=== PATIENT | male | born 1960 | race Hispanic/Latino ===

== ENCOUNTER 2017-11-23 08:14 | Inpatient (IN) | payer BC ==
[2017-11-12 08:00] VITALS: BMI 45.4
[2017-11-23] MEDS ORDERED: Bupivacaine 0.5% 50 ML IJ ONE (09:11)
[2017-11-23] MEDS ORDERED: Midazolam 2 MG/2 ML VIAL ONE (10:43)
[2017-11-23] MEDS ORDERED: Propofol 10 mg/ml Inj (20 ML) ONE (10:43)
[2017-11-23] MEDS ORDERED: Succinylcholine 200 mg/10 ml Inj IV ONE (10:44)
[2017-11-23] MEDS ORDERED: Phenylephrine 10 mg/ml Inj ONE (10:57)
[2017-11-23] MEDS ORDERED: Rocuronium 10 mg/ml (5 ml) ONE ×2 (11:01→12:02)
[2017-11-23] MEDS ORDERED: Bupivacaine Liposomal Inj 20 ml ONE (12:11)
[2017-11-23] MEDS ORDERED: Neostigmine Methylsulfate 3mg/3ml Syringe IV ONE (12:35)
--- NOTE | 2017-11-23 13:18 | PCM.SURG1 ---
Surgeon's Initial Post Op Note - Surgeon's Notes Surgeon: Dr. Bennett Ed Transporter: Dr. Montanez PGY3, Darin ALFORD Type of Anesthesia: General Endo Pre-Operative Diagnosis: ventral hernia Operative Findings: same Post-Operative Diagnosis: ventral hernia Operation Performed: ventral hernia repair with mesh placement. lysis of adhesions Specimen/Specimens Removed: none Estimated Blood Loss: EBL {In ML}: 20 Blood Products Given: N/A Drains Used: Rich Post-Op Condition: Good Date of Surgery/Procedure: 11/23/17 Time of Surgery/Procedure: 13:18
[2017-11-23] MEDS ORDERED: Dextrose 50% SYRINGE Inj (50 ml) IV PRN (13:25)
[2017-11-23] MEDS ORDERED: Sodium Chloride 0.9% 1,000 ML IV SCH (13:30)
--- NOTE | 2017-11-23 14:35 | CP.PCM.HP ---
Past Patient History - CARDIAC Hx Pacemaker: No - NEUROLOGICAL Hx Paralysis: No - HEMATOLOGICAL/ONCOLOGICAL Hx Blood Transfusions: No - MUSCULOSKELETAL/RHEUMATOLOGICAL Hx Musculoskeletal Disorders: No - PSYCHIATRIC Hx Emotional Abuse: No Hx Physical Abuse: No Hx Substance Use: No - SURGICAL HISTORY Hx Surgeries: Yes - ANESTHESIA Hx Anesthesia Reactions: No Hx Malignant Hyperthermia: No Meds Allergies/Adverse Reactions: Allergies Allergy/AdvReac Type Severity Reaction Status Date / Time No Known Allergies Allergy Verified 09/29/17 13:01 Results - Vital Signs Recent Vital Signs: Last Vital Signs Temp 98.5 F 11/23/17 14:01 Pulse 93 H 11/23/17 14:01 Resp 23 11/23/17 14:01 BP 127/64 11/23/17 14:01 Pulse Ox 95 11/23/17 14:01 - Labs Labs: Laboratory Results - last 24 hr 11/23/17 08:45 Blood Type O NEGATIVE Antibody Screen Negative BBK History Checked Patient has bt Assessment & Plan - Assessment and Plan (Free Text) Plan: Status-Post Ventral Hernia Repair -s/p ventral hernia repair with surgeon Dr Bennett 11/23 -NAOMI drain in place -Cefazolin 3g ivpb q8h for post-op empiric coverage -LR @ 125cc/hr -Incentive spirometry use -Liquid diet to start 11/24 breakfast, NPO until then -Standard post-op care including drain mgmt, assess for pain, assess for bleeding, monitor for N/V Diastolic CHF -Echo 09/2017 showed moderate LVH, grade I-abnormal relaxation, moderate to severe aortic regurgitation, mild tricuspid regurgitation -Stress Test 09/2017 - normal lexiscan and SPECT study -EKG from 11/12/2017 showed NSR PPX
[2017-11-23] MEDS ORDERED: Insulin Lispro (humaLOG) MEDIUM Coverage SC SCH (15:00)
--- NOTE | 2017-11-23 15:05 | CP.PCM.CON ---
History of Present Illness - History of Present Illness History of Present Illness: PGY-2 medicine consult note for Dr Sharpe Mr Hicks is a 57 year old male with a PMHx of diastolic CHF, DM2, morbid obesity, gout, pickwickian syndrome, lymphedema and ventral hernia who presented to the surgical unit for a scheduled ventral hernia repair. Medicine has been consulted for management of his chronic conditions. The patient is now status post ventral hernia repair with mesh insertion - the surgery was without complications. The patient was seen in the PACU - he was comfortable and doing well. Surgical site was dressed c/d/i with NAOMI drain with serosanguinous output. He denied shortness of breath, chest pain, fever, discomfort. PMHx: diastolic CHF, DM2, morbid obesity, gout, pickwickian syndrome, lymphedema PSHx: Ventral hernia repair Allergies: NKA Home Medications: folic acid 5mg, zetia 10mg, diltiazem 240mg po qd, lipitor 40mg, allopurinol 300mg, aldactone 25mg po bid, metformin 500mg po qd, lasix 40mg po qd, asa 81mg po qd, ergocalciferol 50,000IU po q2xw Review of Systems - Constitutional Constitutional: absent: Chills, Fever - EENT Eyes: Blurred Vision. absent: Change in Vision - Cardiovascular Cardiovascular: absent: Chest Pain - Respiratory Respiratory: absent: Cough, Dyspnea, Hemoptysis - Gastrointestinal Gastrointestinal: Abdominal Pain. absent: Diarrhea - Genitourinary Genitourinary: absent: Dysuria - Integumentary Integumentary: absent: Bleeding Lesions Past Patient History - CARDIAC Hx Pacemaker: No - NEUROLOGICAL Hx Paralysis: No - HEMATOLOGICAL/ONCOLOGICAL Hx Blood Transfusions: No - MUSCULOSKELETAL/RHEUMATOLOGICAL Hx Musculoskeletal Disorders: No - PSYCHIATRIC Hx Emotional Abuse: No Hx Physical Abuse: No Hx Substance Use: No - SURGICAL HISTORY Hx Surgeries: Yes - ANESTHESIA Hx Anesthesia Reactions: No Hx Malignant Hyperthermia: No Meds Allergies/Adverse Reactions: Allergies Allergy/AdvReac Type Severity Reaction Status Date / Time No Known Allergies Allergy Verified 09/29/17 13:01 - Medications Medications: Current Medications Dextrose (Dextrose 50% Inj) 0 ml IV STAT PRN; Protocol PRN Reason: Hypoglycemia Protocol Diltiazem HCl (Cardizem Cd) 240 mg PO DAILY JO ANN Dextrose (Dextrose 5% In Water 1000 Ml) 1,000 mls @ 0 mls/hr IV .Q0M PRN; Protocol PRN Reason: Hypoglycemia Protocol Lactated Ringer's (Lactated Ringer's) 1,000 mls @ 125 mls/hr IV .Q8H JO ANN Cefazolin Sodium 3 gm/ Sodium (Chloride) 100 mls @ 200 mls/hr IVPB Q8H JO ANN Stop: 11/23/17 21:59 Insulin Human Lispro (Humalog Med) 0 units SC Q6H JO ANN; Protocol Physical Exam - Constitutional Appears: Well, No Acute Distress Additional comments: morbid obesity - Head Exam Head Exam: ATRAUMATIC, NORMAL INSPECTION - Eye Exam Eye Exam: EOMI, PERRL - ENT Exam ENT Exam: Mucous Membranes Moist - Neck Exam Neck exam: Positive for: Normal Inspection - Respiratory Exam Respiratory Exam: Decreased Breath Sounds, NORMAL BREATHING PATTERN - Cardiovascular Exam Cardiovascular Exam: Tachycardia, REGULAR RHYTHM, +S1, +S2, Systolic Murmur. absent: JVD - GI/Abdominal Exam GI & Abdominal Exam: Normal Bowel Sounds, Soft, Tenderness Additional comments: abdominal dressing which has a scant amount of drainage - NAOMI draining small amount of serosanguinous fluid. - Extremities Exam Extremities exam: Positive for: normal capillary refill, pedal edema, pedal pulses present - Neurological Exam Neurological exam: Alert, Oriented x3 - Skin Skin Exam: Normal Color, Warm Results - Vital Signs Recent Vital Signs: Last Vital Signs Temp 98.5 F 11/23/17 14:01 Pulse 93 H 11/23/17 14:01 Resp 23 11/23/17 14:01 BP 127/64 11/23/17 14:01 Pulse Ox 95 11/23/17 14:01 - Labs Labs: Laboratory Results - last 24 hr 11/23/17 08:45 Blood Type O NEGATIVE Antibody Screen Negative BBK History Checked Patient has bt Assessment & Plan - Assessment and Plan (Free Text) Plan: Mr Hicks is a 57 year old male with a PMHx of diastolic CHF, DM2, morbid obesity, gout, pickwickian syndrome, HTN, lymphedema and ventral hernia who required medical management after his ventral hernia repair: Post Ventral Hernia Repair -s/p ventral hernia repair with surgeon Dr Bennett 11/23 -NAOMI drain in place -Cefazolin 3g ivpb q8h for post-op empiric coverage -LR @ 125cc/hr -Incentive spirometry use -Liquid diet to start 11/24 breakfast, NPO until then -Standard post-op care including drain mgmt, assess for pain, assess for b leeding, monitor for N/V Diastolic CHF -Echo 09/2017 showed moderate LVH, grade I-abnormal relaxation, moderate to severe aortic regurgitation, mild tricuspid regurgitation -Stress Test 09/2017 - normal lexiscan and SPECT study -EKG from 11/12/2017 showed NSR -F/U Troponin and Probnp -Hold home aspirin for now HTN -BP well controlled -Continue home diltiazem 240mg po qd DM2 -Hold home metforming 500mg po qd for now -Accuchecks q6h with humalog coverage q6h per medium dose protocol -Hypoglycemia protocol Chronic Lymphedema -Hold home lasix for now -Hold home aldactone for now Pickwickian Syndrome -Chronic CO2 retainer -O2 via nasal cannula 3L -F/U ABG -F/U CXR Gout -Hold home allopurinol for now HLD -Hold home lipitor for now -Hold home zetia for now PPX -SCDs contraindicated due to lymphedema LE b/l -Hold off on anticoagulation until labs and coags are back from lab -GI prophylaxis not indicated -NPO for now
[2017-11-23 15:21] LABS: ARTERIAL BLOOD GAS HCO3 28.7 mmol/L (21-28); ARTERIAL BLOOD GAS HEMOGLOBIN 13.1 g/dL (11.7-17.4); ARTERIAL BLOOD GAS O2 CAPACITY 18.2 mL/dl (16-24); ARTERIAL BLOOD GAS O2 CONTENT 17.1 ML/dl (15-23); ARTERIAL BLOOD GAS O2 SAT 93.8 % (95-98); ARTERIAL BLOOD GAS PCO2 57 mm/Hg (35-45); ARTERIAL BLOOD GAS PH 7.31 (7.35-7.45); ARTERIAL BLOOD GAS TCO2 30.4 mmol.L (22-28)
--- NOTE | 2017-11-23 15:26 | RAD ---
Date of service: 11/23/2017 HISTORY: s/p ventral hernia repair; hx of CO2 narcosis COMPARISON: 11/12/2017 FINDINGS: LUNGS: No active pulmonary disease. PLEURA: No significant pleural effusion identified, no pneumothorax apparent. CARDIOVASCULAR: Severe cardiomegaly OSSEOUS STRUCTURES: No significant abnormalities. VISUALIZED UPPER ABDOMEN: Normal. OTHER FINDINGS: None. IMPRESSION: Severe cardiomegaly. The lungs are clear
[2017-11-23 16:08] LABS: BASO # 0.02 K/mm3 (0.0-2.0); BASO % 0.1 % (0.0-3.0); EOS # 0.2 (0.0-0.7); EOS % 1.5 % (1.5-5.0); GRAN # 10.35 (1.4-6.5); GRAN % 76.2 % (50.0-68.0); HEMOGLOBIN 13.3 g/dL (14.0-18.0); LYMPH # 1.9 (1.2-3.4); LYMPH % 13.8 % (22.0-35.0); MEAN CELL VOLUME 92.2 fl (80.0-105.0); MEAN CORPUSCULAR HEMOGLOBIN 30.4 pg (25.0-35.0); MEAN PLATELET VOLUME 9.3 fl (7.0-11.0); MONO # 1.1 (0.1-0.6); MONO % 8.4 % (1.0-6.0); RBC 4.37 10^6/uL (3.5-6.1); RED CELL DISTRIBUTION WIDTH 13.1 % (11.5-14.5); WHITE BLOOD COUNT 13.6 10^3/ul (4.5-11.0)
[2017-11-23] MEDS ORDERED: Levalbuterol 0.63 MG/3 ML Inhal Soln UD IH PRN (16:13)
--- NOTE | 2017-11-23 16:23 | CARD ---
APPROVED REPORT Date of service: 11/23/2017 EKG Measurement Heart [id number] <Conclusion> Sinus rhythm with 1st degree AV block with occasional premature ventricular complexes Abnormal ECG
[2017-11-23 16:28] LABS: ALB/GLOB RATIO 1.3 (1.1-1.8); ALBUMIN 3.8 g/dL (3.0-4.8); ALT/SGPT 28 U/L (7-56); AST/SGOT 20 U/L (17-59); BLOOD UREA NITROGEN 16 mg/dL (7-21); CALCIUM 8.8 mg/dL (8.4-10.5); GFR NON-AFRICAN AMERICAN > 60
[2017-11-23] MEDS ORDERED: Insulin Reg-MEDIUM-Coverage SC SCH (16:30)
[2017-11-23 16:36] LABS: B-TYPE NATRIURETIC PEPTIDE 166 pg/mL (0-450); TROPONIN I < 0.01 ng/mL
[2017-11-23] MEDS: Lactated Ringer's 1,000 ML IV SCH ×2 (18:54→21:19)
[2017-11-23] MEDS: Insulin Lispro (humaLOG) MEDIUM Coverage SC SCH (19:00)
[2017-11-23] MEDS: Levalbuterol 0.63 MG/3 ML Inhal Soln UD IH SCH (20:42)
[2017-11-24] MEDS: Insulin Lispro (humaLOG) MEDIUM Coverage SC SCH ×3 (00:07→18:38)
[2017-11-24] MEDS: Levalbuterol 0.63 MG/3 ML Inhal Soln UD IH SCH ×4 (01:07→19:58)
[2017-11-24 07:05] LABS: BASO # 0.02 K/mm3 (0.0-2.0); BASO % 0.2 % (0.0-3.0); EOS # 0.1 (0.0-0.7); EOS % 0.9 % (1.5-5.0); GRAN # 8.69 (1.4-6.5); GRAN % 72.5 % (50.0-68.0); LYMPH % 16.5 % (22.0-35.0); MEAN CORPUSCULAR HEMOGLOBIN 30.2 pg (25.0-35.0); MEAN CORPUSCULAR HGB CONC 32.4 g/dl (31.0-37.0); MEAN PLATELET VOLUME 8.9 fl (7.0-11.0); MONO # 1.2 (0.1-0.6); MONO % 9.9 % (1.0-6.0); RBC 4.31 10^6/uL (3.5-6.1); RED CELL DISTRIBUTION WIDTH 13.4 % (11.5-14.5)
[2017-11-24 07:18] LABS: ALB/GLOB RATIO 1.2 (1.1-1.8); ALBUMIN 3.7 g/dL (3.0-4.8); ALT/SGPT 25 U/L (7-56); AST/SGOT 18 U/L (17-59); BLOOD UREA NITROGEN 13 mg/dL (7-21); CALCIUM 8.7 mg/dL (8.4-10.5); GFR NON-AFRICAN AMERICAN > 60
[2017-11-24 08:41] LABS: ALB/GLOB RATIO 1.3 (1.1-1.8); ALBUMIN 3.7 g/dL (3.0-4.8); BILIRUBIN,DIRECT 0.2 mg/dL (0.0-0.4)
--- NOTE | 2017-11-24 08:56 | CON ---
DATE: 11/23/2017 REQUESTING PHYSICIAN: Miguel Ángel Bennett MD. REASON FOR CONSULTATION: Postop management of hypoxemia, hypercarbia and hypoxemia. HISTORY OF PRESENT ILLNESS: The patient is a morbidly obese more than 300 pounds 57-year-old male, who is presently being seen and evaluated in the Postanesthesia Care Unit. The patient is seen lying in the stretcher in the Postanesthesia Care Unit. The patient was seen and examined with the program medical director and the surgical attending. At present, the patient is lying in the bed, awake, responsive, does not appear to be any distress. The patient's telemetry monitoring, vital signs were reviewed. Heart rate is 83-87, normal sinus rhythm, blood pressure is 102/76, O2 sat on 1 L is 93-95%. The patient is presently in the Postanesthesia Care Unit, postop after umbilical herniorrhaphy. The patient was found to be hypoxic and is in the recovery room. REVIEW OF SYSTEMS: Thirteen-system review was done, pertinent positive and negative dictated above. CODE STATUS: Full code. LIVING WILL ADVANCE DIRECTIVE: None. The patient's height is almost 6 feet with weight of greater than 310 pounds. BMI is greater than or close to 50. ALLERGIES: PER THE MEDICATION AND THE [employer] HISTORY. MEDICATIONS: The patient's medications are as follows, Lasix 40 mg twice or three times a day, Cardizem CD either 240 or 180 mg daily. The patient is on potassium 10 or 20 mEq once a day. The patient is on metformin 500 mg once a day. The patient is on Lipitor 40 or 20 mg daily. The patient is on Zetia 10 mg daily. The patient is also on Ecotrin 81 mg daily at home. The patient is on vitamin D 50,000 units weekly. SOCIAL HISTORY: Positive for alcohol use. Denies smoking. Denies drug use. Denies communicable transmissible disease. 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 FAMILY HISTORY: Positive for hypertension, diabetes and obesity in the family. PAST MEDICAL AND SURGICAL HISTORY: History of super morbid obesity, history of bilateral lower extremity lymphedema, history of moderate to severe aortic regurgitation, history of hypertensive cardiovascular disease, history of hypertension, history of hyperlipidemia, history of type 2 noninsulin-requiring diabetes mellitus, history of ventral hernia surgery, history of hepatic steatosis, history of severe dietary noncompliance, history of hypovitaminosis D, history of ventral herniorrhaphy 16 years ago. The patient was seen and examined in the Postanesthesia Care Unit. PHYSICAL EXAMINATION: VITAL SIGNS: As mentioned above. HEENT: Head examination normocephalic, atraumatic. HEENT examination shows pink conjunctivae. Anicteric sclerae. No oropharyngeal lesion. NECK: No neck rigidity. Neck is short and supple. CHEST: Kyphosis. Decreased air entry noted bilaterally. No wheezing or crackles or rales noted. CARDIOVASCULAR: S1, S2. Positive diastolic murmur, left second intercostal space, right second intercostal space. ABDOMEN: Morbidly obese, protuberant. Positive abdominal dressing noted. No bleeding or drainage noted on dresses. Decreased bowel sounds noted. GENITALIA: Male. EXTREMITY: Shows positive SCDs. Positive lymphedema and pitting edema of the lower extremity noted. MUSCULOSKELETAL: Shows an elevated body mass index. NEUROLOGICAL: The patient is alert, awake, responsive, is able to move upper and lower extremity without assistance. Gait examination is not tested. PSYCHIATRIC: Not applicable. DIAGNOSTICS: CBC shows a WBCs of 13.3, hemoglobin and hematocrit of greater than 13 and platelets are within normal limits. Chemistry is within normal limits. CMP is within normal limit. LFT is within normal limit. Troponin is 0.01. BNP is 167. Chest x-ray: No active disease. The patient's ABG which was done on 1-2 L oxygen: PH of 7.31, pCO2 of 56, pO2 of 67, bicarb 24, which shows mild respiratory acidosis and hypoxemia. The patient underwent umbilical herniorrhaphy today with Dr. Miguel Ángel Bennett at present. EKG is pending. IMPRESSION AND PLAN: 1. Status post umbilical herniorrhaphy. 2. Super morbid obesity. 3. Possible Pickwickian syndrome with morbid obesity. 4. Hypoxemia. 5. Hypercarbia. 6. Respiratory acidosis. 7. Possible and questionable jafau-ci-depypdl hypoxic hypercarbic respiratory failure secondary to Pickwickian syndrome and morbid obesity. 8. History of moderate aortic regurgitation. 9. Leukocytosis with granulocytosis, postoperative reactive. 10. Mild normocytic anemia. 11. History of hypertension. 12. History of bilateral lower extremity venous stasis and lymphedema. 13. History of umbilical hernia. 14. History of ventral herniorrhaphy. 15. History of type 2 diabetes mellitus, history of hypertension, history of hyperlipidemia, hypovitaminosis D, history of severe dietary noncompliance. Plan at this time, the patient has been admitted to either remote tele or telemetry. The patient will be continued on low-flow oxygen supplementation to titrate O2 sat around mid 90s. The patient at this time has been admitted by Surgical Service with medical consultation requested. The patient will be started on fingerstick blood sugar sliding scale coverage. The patient will be started on non-pharmacological DVT prophylaxis. The patient will be started on GI prophylaxis with IV Protonix. The patient will be continued on postoperative management in the recovery room. The patient will be admitted by the Surgical Service for at least 24-48 hours for postop management. The patient will have repeat labs ordered in the morning. The patient will be closely followed up with Surgical Service. The patient will be kept n.p.o. today. The patient has been started on IV fluid in the recovery room, which will be discontinued, then patient will be started on diet. At this time, the patient's condition is fair to guarded. The patient will be admitted to telemetry or remote telemetry with continuous postop monitoring and medical and surgical followup. Dictated and electronically signed, not read. Nael Sharpe MD
[2017-11-24] MEDS ORDERED: diltiaZEM 240 mg/24 Hours CD Cap PO SCH (10:00)
--- NOTE | 2017-11-24 11:56 | CP.PCM.PN ---
<Edi Allen - Last Filed: 11/24/17 11:56> Subjective - Date & Time of Evaluation Date of Evaluation: 11/24/17 Time of Evaluation: 11:54 - Subjective Subjective: General surgery progress note for Dr. Bennett Patient seen and examined at bedside. No acute events overnight. He is tolerating his diet well. Denies flatus, bowel movements, nausea, vomiting. Further denies any fevers, chills, chest pain, or shortness of breath. Objective - Vital Signs/Intake and Output Vital Signs (last 24 hours): Temp Pulse Resp BP Pulse Ox 98.1 F 106 H 20 144/97 H 94 L 11/24/17 06:00 11/24/17 09:31 11/24/17 06:00 11/24/17 09:31 11/24/17 06:00 Intake and Output: 11/24/17 11/24/17 06:59 18:59 Intake Total 2070 Output Total 1240 Balance 830 - Medications Medications: Current Medications Acetaminophen (Tylenol 325mg Tab) 650 mg PO Q6 PRN PRN Reason: TEMP>=99.5F Acetaminophen (Tylenol 650 Mg Supp) 650 mg RC Q6H PRN PRN Reason: TEMP>=99.5F Dextrose (Dextrose 50% Inj) 0 ml IV STAT PRN; Protocol PRN Reason: Hypoglycemia Protocol Diltiazem HCl (Cardizem Cd) 240 mg PO DAILY [facility] Last Admin: 11/24/17 09:31 Dose: 240 mg Dextrose (Dextrose 5% In Water 1000 Ml) 1,000 mls @ 0 mls/hr IV .Q0M PRN; Protocol PRN Reason: Hypoglycemia Protocol Lactated Ringer's (Lactated Ringer's) 1,000 mls @ 125 mls/hr IV .Q8H JO ANN Last Admin: 11/23/17 21:19 Dose: 125 mls/hr Insulin Human Lispro (Humalog Med) 0 units SC Q6 JO ANN; Protocol Last Admin: 11/24/17 00:07 Dose: Not Given Levalbuterol HCl (Xopenex) 0.63 mg IH [id number] JO ANN Last Admin: 11/24/17 07:47 Dose: 0.63 mg Metoclopramide HCl (Reglan) 5 mg IVP Q6 JO ANN Ondansetron HCl (Zofran Inj) 4 mg IVP Q4H PRN PRN Reason: Nausea/Vomiting Pantoprazole Sodium (Protonix Inj) 40 mg IVP Q12 JO ANN Last Admin: 11/24/17 09:31 Dose: 40 mg - Labs Labs: 11/24/17 06:15 11/24/17 06:15 - Constitutional Appears: Well, Non-toxic, No Acute Distress - Head Exam Head Exam: ATRAUMATIC, NORMOCEPHALIC - Eye Exam Eye Exam: Normal appearance - ENT Exam ENT Exam: Mucous Membranes Moist - Respiratory Exam Respiratory Exam: NORMAL BREATHING PATTERN. absent: Respiratory Distress - Cardiovascular Exam Cardiovascular Exam: RRR. absent: Tachycardia - GI/Abdominal Exam GI & Abdominal Exam: Soft, Tenderness (Tender around incision site, dressing in place, C/D/I). absent: Distended - Extremities Exam Extremities Exam: Normal Inspection - Neurological Exam Neurological Exam: Alert, Awake, Oriented x3 - Psychiatric Exam Psychiatric exam: Normal Affect, Normal Mood - Skin Skin Exam: Dry, Intact, Normal Color, Warm Assessment and Plan - Assessment and Plan (Free Text) Assessment: Patient is a 57 year old male presenting with a ventral hernia s/p hernia repair with mesh. Plan: - Monitor drain output - Advance diet as tolerated - Encourage ambulation - Incentive spirometer - Repeat labs Discussed case with Dr. Donald Allen DO PGY-1 <Miguel Ángel Bennett - Last Filed: 11/27/17 20:22> Subjective - Subjective Subjective: Rich drain 40+cc Blood Sharon liquids=getting up=No pain:Neg Homans Plan PT/PT/Ambulation/+SCD-Hold Heparin SQ today/Diet am No significant pain Nasal O2 1 liter per minute Leave dressing til am R Donald PHAM FACS Objective - Vital Signs/Intake and Output Vital Signs (last 24 hours): Temp Pulse Resp BP Pulse Ox 98.2 F 30 L 19 81/65 L 77 L 11/25/17 02:49 11/25/17 02:47 11/25/17 03:00 11/25/17 02:20 11/25/17 02:41 - Labs Labs: 11/25/17 00:40 11/25/17 00:40 PT 20.9 SECONDS (9.4-12.5) H 11/25/17 00:40 INR 1.81 11/25/17 00:40 APTT 37.7 Seconds (25.1-36.5) H 11/24/17 21:17
[2017-11-24] MEDS: Lactated Ringer's 1,000 ML IV SCH (17:49)
[2017-11-24] MEDS ORDERED: WATER IV PRN (21:07)
[2017-11-24] MEDS ORDERED: DEXTROSE 5% IV PRN (21:07)
[2017-11-24] MEDS ORDERED: DOPAMINE IV PRN (21:07)
[2017-11-24 21:18] LABS: BASO # 0.05 K/mm3 (0.0-2.0); BASO % 0.3 % (0.0-3.0); EOS # 0.1 (0.0-0.7); EOS % 0.3 % (1.5-5.0); GRAN # 9.58 (1.4-6.5); GRAN % 51.5 % (50.0-68.0); LYMPH # 6.9 (1.2-3.4); LYMPH % 36.8 % (22.0-35.0); MEAN CORPUSCULAR HEMOGLOBIN 30.6 pg (25.0-35.0); MEAN CORPUSCULAR HGB CONC 31.4 g/dl (31.0-37.0); MEAN PLATELET VOLUME 9.9 fl (7.0-11.0); MONO # 2.1 (0.1-0.6); MONO % 11.1 % (1.0-6.0); RBC 4.25 10^6/uL (3.5-6.1); RED CELL DISTRIBUTION WIDTH 13.6 % (11.5-14.5); WHITE BLOOD COUNT 18.6 10^3/ul (4.5-11.0)
[2017-11-24 21:22] LABS: MEAN CELL VOLUME 97.4 fl (80.0-105.0)
[2017-11-24 21:34] LABS: ALB/GLOB RATIO 1.2 (1.1-1.8); ALBUMIN 3.7 g/dL (3.0-4.8); ALT/SGPT 593 U/L (7-56); AST/SGOT 478 U/L (17-59); BLOOD UREA NITROGEN 10 mg/dL (7-21); CALCIUM 8.7 mg/dL (8.4-10.5); GFR NON-AFRICAN AMERICAN > 60
[2017-11-24 21:41] LABS: TROPONIN I 0.11 ng/mL
--- NOTE | 2017-11-24 23:18 | PN ---
DATE: 11/24/2017 SUBJECTIVE: The patient is seen in room 372, bed 1. The patient is seen sitting up in the bed around 1130am -12 Noon. Overnight nurse's notes were reviewed. The patient stayed alert, awake, oriented x3. No adverse events were documented. The patient was found to have a urinary retention for which the patient needs a straight cath with drainage of 1200 mL of urine. PHYSICAL EXAMINATION: VITAL SIGNS: The patient was seen. T-max 98.5; heart rate 82, 86, 106, 98; blood pressure is 126/68, 144/97; respiration 20; O2 sat is 94%, 95%. GENERAL: The patient is seen sitting up in the bed. Patient is alert, awake, responsive. HEENT: Head: Normocephalic, atraumatic. HEENT examination shows pinkish conjunctivae. Anicteric sclerae. No oropharyngeal lesion. No neck rigidity. CHEST: Kyphosis. LUNGS: Decreased breath sounds noted bilaterally. No rales, crackles or wheezing. CARDIOVASCULAR: S1, S2, regular rhythm. Positive diastolic murmur at left sternal border, right second intercostal space, left second intercostal space. ABDOMEN: Protuberant, obese. Positive abdominal dressing. Positive drains. GENITALIA: Male. RECTAL: Examination is deferred. EXTREMITIES: Shows positive pitting edema of the lower extremity. No calf tenderness noted. NEUROLOGIC: Patient is alert, awake, responsive, follows command. Moves upper and lower extremities without assistance. Gait examination is not tested. MUSCULOSKELETAL: Examination shows a body mass index of 46. DIAGNOSTICS: On 11/24, WBC 12, hemoglobin/hematocrit 13 and 40.1, platelets 196. Granulocytes 72% segs. CMP, LFT's from 615 am of 11/24/2017 reviewed. IMPRESSION: 1. Status post umbilical hernia repair with mesh placement and lysis of adhesion. 2. Status post incarcerated umbilical hernia repair. 3. Status post umbilical ventral hernia repair with mesh placement postop day #1. 4. Tachycardia. 5. Super morbid obesity. 6. Leukocytosis with granulocytosis. 7. Normocytic anemia. 8. Cardiomegaly. 9. History of aortic regurgitation. 10. Postoperative deconditioning. PLAN: At this time, the patient has been ordered repeat labs. The patient is referred for diabetic education, TCU evaluation. CURRENT MEDICATIONS: The patient is on Cardizem 240 mg daily. The patient is on insulin medium dose sliding scale coverage, Protonix 40 IV every 12, Reglan 5 mg IV every 6, Tylenol p.r.n., Xopenex nebulizer 0.63 mg every 6 hours, Zofran 4 mg IV every 4 p.r.n. He has been ordered SCDs, MARCIE stockings, physical therapy, occupational therapy. The patient's case is referred to [facility], Case Management for discharge planning. Discharge planning at this time is TCU versus home with services. The patient will be followed closely with the surgical service. Dictated and electronically signed, not read. Nael Sharpe MD MTDD
[2017-11-24] MEDS ORDERED: NOREPINEPHRINE BIT/0.9 % NACL 4 MG/250 ML BAG IV PRN (23:32)
[2017-11-24] MEDS ORDERED: NOREPINEPHRINE BIT/0.9 % NACL 4 MG/250 ML BAG IV STA (23:33)
[2017-11-24] MEDS ORDERED: NOREPINEPHRINE BIT/0.9 % NACL 4 MG/250 ML BAG IV ONE (23:35)
[2017-11-24] MEDS ORDERED: Sodium Chloride 0.9% 1,000 ML IV SCH (23:45)
[2017-11-25] MEDS ORDERED: Piperacill/Tazo 4.5gm in NS 4.5 GM/100 ML BAG IVPB SCH
[2017-11-25] MEDS: Insulin Lispro (humaLOG) MEDIUM Coverage SC SCH
[2017-11-25] MEDS ORDERED: Sodium Chloride 0.9% 1,000 ML IV STA ×2 (00:37→00:46)
[2017-11-25] MEDS ORDERED: Heparin25000 units/250ml 1/2NS 25,000 UNITS/250 ML BAG IV PRN (00:38)
[2017-11-25 00:48] LABS: BASO # 0.07 K/mm3 (0.0-2.0); BASO % 0.2 % (0.0-3.0); EOS # 0.2 (0.0-0.7); EOS % 0.5 % (1.5-5.0); GRAN # 21.27 (1.4-6.5); GRAN % 74.6 % (50.0-68.0); HEMOGLOBIN 11.7 g/dL (14.0-18.0); LYMPH # 5.6 (1.2-3.4); LYMPH % 19.8 % (22.0-35.0); MEAN CELL VOLUME 98.2 fl (80.0-105.0); MEAN CORPUSCULAR HGB CONC 30.5 g/dl (31.0-37.0); MEAN PLATELET VOLUME 9.8 fl (7.0-11.0); MONO # 1.4 (0.1-0.6); MONO % 4.9 % (1.0-6.0); RBC 3.9 10^6/uL (3.5-6.1); RED CELL DISTRIBUTION WIDTH 13.6 % (11.5-14.5)
[2017-11-25 00:51] LABS: ARTERIAL BLOOD GAS HCO3 13.4 mmol/L (21-28); ARTERIAL BLOOD GAS PCO2 53 mm/Hg (35-45)
[2017-11-25 00:52] LABS: WHITE BLOOD COUNT 28.5 10^3/ul (4.5-11.0)
[2017-11-25] MEDS ORDERED: Sodium Bicarbonate (8.4%) 50 Meq Syringe IVP ONE (00:58)
[2017-11-25] MEDS ORDERED: Sodium Bicarbonate 8.4% 150 MEQ in Dextrose 5% In Water 1,000 ML IV SCH (01:00)
[2017-11-25 01:11] LABS: INR 1.81; PROTHROMBIN TIME 20.9 SECONDS (9.4-12.5)
[2017-11-25 01:17] LABS: ALB/GLOB RATIO 1.1 (1.1-1.8); ALBUMIN 3.2 g/dL (3.0-4.8); BLOOD UREA NITROGEN 12 mg/dL (7-21); CALCIUM 8.2 mg/dL (8.4-10.5); GFR NON-AFRICAN AMERICAN 44
[2017-11-25 01:21] LABS: TROPONIN I 1.55 ng/mL
[2017-11-25 01:23] LABS: ARTERIAL BLOOD GAS PH 7.01 (7.35-7.45)
[2017-11-25 01:32] LABS: D DIMER > 5250 ng/mlDDU (0-243)
[2017-11-25] MEDS ORDERED: EPINEPHrine- 1 MG in Sodium Chloride 0.9% 50 ML IV PRN (02:02)
[2017-11-25] MEDS ORDERED: EPINEPHrine- 1 MG in Sodium Chloride 0.9% 50 ML IV STA (02:04)
[2017-11-25] MEDS ORDERED: Dextrose 50% SYRINGE Inj (50 ml) IVP ONE (02:16)
[2017-11-25] MEDS ORDERED: Insulin Regular 1 UNITS/0.01 ML ML IV ONE (02:17)
[2017-11-25] MEDS ORDERED: Heparin25000 units/250ml 1/2NS 25,000 UNITS/250 ML BAG IV SCH (02:30)
--- NOTE | 2017-11-25 02:44 | PN ---
DATE: 11/24/2017 SUBJECTIVE: The patient is postoperative day #1 following a ventral herniorrhaphy with placement of a composite mesh. He had some delay in awakening due to a chronic cardiopulmonary condition (Pickwickian-hypercarbia) and the patient was able to be breathing normally, saturating in the low 90s, was maintained for the first postoperative day on 1 liter of nasal oxygen and doing exceptionally well. He has minimal abdominal pain, some sanguineous drainage from the suction drain (40 mL overnight) and was started on clear liquids and advised to ambulate. During the first night, he had some trouble with urinary retention and in the morning on rounds, the nurse was instructed after she described a 1200 mL bladder residual to place a Saucedo catheter and leave it in. During the day, the patient was doing so well on voiding and the did note of this and the patient was seen on rounds approximately after 8 o'clock by the evening nurse and claimed he was in good condition and had no problems. At 07:10 in the evening, just after the shift change, the telemetry became disconnected and the welfare case worker made a note in their record and contacted the floor that the telemetry was no longer reading and someone should attend to it. At 07:45, the replacement radio/tv technician repeated this, documented the 3 three people she spoke with and somewhere in the vicinity of 08:20 or 08:30, the nurse walked into the patient's room to adjust the welfare case worker and knows that the patient had stopped breathing. A code blue was called. The patient was resuscitated. His heart restarted and shortly afterwards, he went into pulseless state and was intubated at this point by the house physician and resuscitation resumed and the patient developed a sinus tachycardia of 115 and was being ventilated on the endotracheal tube. The recruitment internship took the patient from the [facility] floor to the Intensive Care Unit. A portable chest x-ray had been taken demonstrating the tube above the musa and evidence of some vascular congestion, but no evidence of pneumothorax, aspiration pneumonia or major pulmonary complication by portable imaging. The white count was slightly elevated at 18. The hemoglobin remained stable at 13. The electrolytes were normal. The troponin was 0.11 which is intermediate concern and with the patient being resuscitated and shocked, this normal number is fully acceptable. The period of the ischemic time may determine if the patient developed any increase in troponin on repeat examinations. Without any significant evidence at this point as to the etiology of the arrest, the ultrasound unit was placed over the femoral regions in both legs demonstrating good flow of blood without evidence of immediate or massive clot. The legs were the same appearance as on the spiritual care coordinator exam and it was elected at this point to start a heparin drip and place the patient on Levophed to get the blood pressure from the 50-80 range that was jumping between somewhat elevated. For this purpose, a central line is inserted via the right jugular vein and the patient's vehicle care specialist, Dr. Kyle Herzog was called, the situation explained and electrocardiogram will be taken at this point post code and see if it demonstrates ST elevations or arrhythmia. Discussion was held with the patient's private physician, Dr. Nael Sharpe and he is fully aware of the plans and agrees with same and the patient's sister who is the responsible family member was contacted, came to the hospital, sat with the patient and with this surgeon and went over all the problems. The patient's sister describes that he wants all measures done if at all possible and as this is being done now, she was so reassured. I have explained to her and I will keep her immediately in contact that she keeps her cell phone on and we made certain we had the correct numbers at this point. The patient's general condition with a BMI of over 40 and 337 pounds weight puts him in somewhat of a risk for pulmonary embolism or aspiration and despite the limited amount of bleeding, the patient will be placed on a heparin drip. The patient's prognosis is somewhat guarded at this point and the vehicle care specialist will see the patient in the morning and hopefully be able to offer any additional assistance at this point. The patient's stress test done 1 month prior to the surgery demonstrated an ejection fraction of 51% and absence of ischemic changes and good mechanical motility on the visual part of the exam. The cause of the arrest is unclear and could have been embolus or an arrhythmia or a small amount of aspiration and repeat examinations will probably help in elucidating the cause of this sudden event. This dictation will be electronically signed without being read. Miguel Ángel Bennett MD
--- NOTE | 2017-11-25 02:59 | CP.PCM.PRO ---
Pronouncement of Note - Clinical Findings Physical Exam: No Response Verbal/Painful Stimuli, Absent Peripheral Puls es{Carotid & Femoral}, Absent Heart & Breath Sounds, No Pupillary Light Reflex, No Corneal Reflex, Absence of Vital Signs - Pronouncement Time Time of Pronouncement of : 02:42 - Notifications Pronouncement Notifications: Family Notified, Atending Notified Banana Handler Notified: No - Autopsy Autopsy Requested: No - [place] [id number]
--- NOTE | 2017-11-25 03:08 | CP.PCM.PCO ---
Physician Communication Note - Physician Communication Note Physician Communication Note: Recoded 2:20am- 2:42/Family & ME notified
--- NOTE | 2017-11-25 03:09 | PCM.RRT ---
<Sam Maciel - Last Filed: 11/25/17 03:54> AIRCRAFT POWERTRAIN REPAIRER Nurse Assessment - Situation Date: 11/25/17 Time AIRCRAFT POWERTRAIN REPAIRER was called: 20:43 AIRCRAFT POWERTRAIN REPAIRER Responder Arrival Time: 20:44 AIRCRAFT POWERTRAIN REPAIRER Location:: [address] [place] [address] AIRCRAFT POWERTRAIN REPAIRER Reason for Call: Change in Mental Status AIRCRAFT POWERTRAIN REPAIRER Called By: RN - Respiratory Oxygen Delivery Method: Intubated Received Nebulizer Treatments:: No Was the Patient Ventilated with Bag/Mask 100% O2?: Yes Secretions Suctioned?: Yes Was the Patient Intubated?: Yes Was the Patient Placed on a Ventilator?: Yes - Medication Medications Administered During AIRCRAFT POWERTRAIN REPAIRER: sodium bicarb. dopamine. 15mg epinephrine. calcium gluconate. NS bolus - Diagnostic Test Ordered Chest X-Ray: Yes - Stat Labs Ordered AIRCRAFT POWERTRAIN REPAIRER Stat Labs Ordered: CBC, BMP, PT/PTT, TROPONIN, ABG CPR started during AIRCRAFT POWERTRAIN REPAIRER?: Yes - Vital Signs Vital Sign: unable to obtain BP PEA - Yasir Coma Scale Coma Scale Eye Opening: No response Coma Scale Motor: None Coma Scale Verbal: No response - Sepsis Screen Part 2 Sepsis Screen Part 2: WBC over 12,000 - Time AIRCRAFT POWERTRAIN REPAIRER Ended Time AIRCRAFT POWERTRAIN REPAIRER Ended: 22:00 - Recommendations 5) AIRCRAFT POWERTRAIN REPAIRER Level of Care Recommendations: Transfer to ICU Notifications: Attending Physician, Consultations, Family or Designated Caregiver I.Reason for AIRCRAFT POWERTRAIN REPAIRER - A) Acute Change in Patient: (Select all that apply): Acute change in mental status Subjective: Phuc blue was called, cardioversion was attempted, pt was given 4mg of epinephrine, then an NS bolus, shock was delivered/ 2mg of epinephine were given, shock was delivered, 1mg of epinephrine, dopamine and sodium bicarb were given, shock was delivered, 300 amiodarone was given, 150 amiodarone was given 1mg of epi, shock delivered with 3 mg of epi, shock delivered, followed by 4mg of epinephrine. - Respiratory Oxygen Delivery Method: Intubated - Constitutional Appears: In Acute Distress - Head Head Exam: ATRAUMATIC, NORMOCEPHALIC - Respiratory Exam Respiratory Exam: Clear to Ausculation Bilateral. absent: Accessory Muscle Use Additional comments: intubated - Cardiovascular Exam Cardiovascular Exam: REGULAR RHYTHM - GI/Abdominal Exam Additional comments: s/p hernia repair Plan - Assessment of Findings&Treatment Plan Transfer pt to ICU CBC CMP D dimer mg phos IVF ABG troponins Attending made aware family made aware surgeon made aware <Osborne,Guli N - Last Filed: 11/27/17 00:31> Addendum Addendum: 11/27/17 00:29 pt with ventral hernia repair post op day 2 was in cardiac arrest . after ACLS regained the pulse pt transferred to icu dr krishna also came to see the pt .
[2017-11-25 03:18] VITALS: BP 81/65; PULSE 30; RESP 19; TEMP 98.2; O2SAT 77
--- NOTE | 2017-11-25 04:54 | PCM.RRT ---
BELL NECK HAMMERER Nurse Assessment - Situation Date: 11/25/17 Time BELL NECK HAMMERER was called: 02:24 BELL NECK HAMMERER Responder Arrival Time: 02:24 BELL NECK HAMMERER Location:: Critical Care Unit Room Number: 129-6 BELL NECK HAMMERER Reason for Call: Bradycardia BELL NECK HAMMERER Called By: RN - IV IV Inserted during BELL NECK HAMMERER?: Yes - Respiratory Oxygen Delivery Method: Intubated Received Nebulizer Treatments:: No Was the Patient Ventilated with Bag/Mask 100% O2?: Yes Secretions Suctioned?: Yes Was the Patient Intubated?: Yes Was the Patient Placed on a Ventilator?: Yes - Medication Medications Administered During BELL NECK HAMMERER: sodium bicarbonate. calcium gluconate. epinephrine CPR started during BELL NECK HAMMERER?: Yes - Yasir Coma Scale Coma Scale Eye Opening: No response Coma Scale Motor: None Coma Scale Verbal: No response - Sepsis Screen Part 2 Sepsis Screen Part 2: WBC over 12,000 - Time BELL NECK HAMMERER Ended Time BELL NECK HAMMERER Ended: 02:42 - Vital Signs at end of BELL NECK HAMMERER Vital Signs at end of BELL NECK HAMMERER: Asystole - Recommendations Notifications: Attending Physician, Consultations, Family or Designated Caregiver I.Reason for BELL NECK HAMMERER - A) Acute Change in Patient: (Select all that apply): Acute change in heart rate less than 50 or greater than 120 - Neurological Status (Select all that apply): absent: Alert, Responsive, Oriented, Verbal, Follows Commands - Respiratory Oxygen Delivery Method: Intubated
--- NOTE | 2017-11-25 05:22 | CP.PCM.PN ---
<Maude Edge - Last Filed: 11/25/17 05:48> Subjective - Date & Time of Evaluation Date of Evaluation: 11/25/17 Time of Evaluation: 02:41 - Subjective Subjective: NERY ROLDAN PROGRESS NOTE Maude Edge D.O. PGY-1 57 y/o M s/p ventral hernia repair was transferred to ICU after 2 consecutive code blues were called on medicine floors. Central line was placed and pt was placed on vasopressors for bp support after rosc was obtained. Refer to MISSING PERSONS INVESTIGATOR note for details on previous code blues. Nery roldan was called in ICU when pts heart rate was declining rapidly and had eventually went to cardiopulmonary arrest, pulses were absent. Pt was already intubated upon arrival to ICU. Compressions were started immediately and ACLS protocol was conducted. Epinephrine, bicarbonate, epinephrine and calcium gluconate were administered. Epinephrine was given again at regular intervals according to protocol. Pt remained in asytole throughout cardiopulmonary resuscitation. 6 total doses of epinephrine were given, 1 dose of bicarbonate, and 1 dose of calcium gluconate. The time [place] 0242a 11/25/17 after electrical activity had ceased. Sister was notified, along with PMD Dr. Sharpe and Surgeon Dr. Bennett. EDRS Objective - Vital Signs/Intake and Output Vital Signs (last 24 hours): Temp Pulse Resp BP Pulse Ox 98.2 F 30 L 19 81/65 L 77 L 11/25/17 02:49 11/25/17 02:47 11/25/17 03:00 11/25/17 02:20 11/25/17 02:41 Intake and Output: 11/24/17 11/25/17 18:59 06:59 Intake Total 2210 30 Output Total 850 Balance 1360 30 - Medications Medications: Current Medications Acetaminophen (Tylenol 325mg Tab) 650 mg PO Q6 PRN PRN Reason: TEMP>=99.5F Last Admin: 11/24/17 17:48 Dose: 650 mg Acetaminophen (Tylenol 650 Mg Supp) 650 mg RC Q6H PRN PRN Reason: TEMP>=99.5F Dextrose (Dextrose 50% Inj) 0 ml IV STAT PRN; Protocol PRN Reason: Hypoglycemia Protocol Diltiazem HCl (Cardizem Cd) 240 mg PO DAILY [facility] Last Admin: 11/24/17 09:31 Dose: 240 mg Hydrocortisone Sodium Succinate (Solu-Cortef) 50 mg IVP Q8 JO ANN Dextrose (Dextrose 5% In Water 1000 Ml) 1,000 mls @ 0 mls/hr IV .Q0M PRN; Protocol PRN Reason: Hypoglycemia Protocol Dopamine HCl 400 mg/ Dextrose 260 mls @ 27.24 mls/hr IV .Q9H33M PRN; Protocol PRN Reason: TITRATE PER MD ORDER Last Titration: 11/24/17 22:50 Dose: 10 mcg/kg/min, 54.49 mls/hr NOREPINEPHRINE BIT/0.9 % NACL (Levophed 4 Mg/ 250 Ml Ns Premixed) 4 mg in 250 mls @ 15 mls/hr IV .[id number] STA; Protocol Stop: 11/25/17 16:11 Last Admin: 11/24/17 23:30 Dose: 4 mcg/min, 15 mls/hr Piperacillin Sod/Tazobactam Sod (Zosyn 4.5 Gm In Ns 100ml) 4.5 gm in 100 mls @ 200 mls/hr IVPB Q6 JO ANN; Protocol Stop: 11/25/17 06:29 Last Admin: 11/25/17 00:00 Dose: 200 mls/hr Sodium Chloride (Sodium Chloride 0.9%) 1,000 mls @ 150 mls/hr IV .Q6H40M JO ANN Last Admin: 11/25/17 01:00 Dose: 150 mls/hr Vasopressin 20 units/ Sodium (Chloride) 101 mls @ 9.09 mls/hr IV .Q11H7M JO ANN; Protocol Last Admin: 11/25/17 01:00 Dose: 9.09 mls/hr Sodium Bicarbonate 150 meq/ (Dextrose) 1,150 mls @ 100 mls/hr IV .[id number] JO ANN Last Admin: 11/25/17 01:30 Dose: 100 mls/hr Epinephrine HCl 1 mg/ Sodium (Chloride) 51 mls @ 3.06 mls/hr IV .[id number] STA; Protocol Stop: 11/25/17 18:42 Heparin Sodium/Sodium Chloride (Heparin 56066 Units/250ml 1/2 Normal Saline) 25,000 units in 250 mls @ 16.765 mls/hr IV .[id number] JO ANN; Protocol Insulin Human Lispro (Humalog Med) 0 units SC Q6 JO ANN; Protocol Last Admin: 11/25/17 00:00 Dose: Not Given Levalbuterol HCl (Xopenex) 0.63 mg IH [id number] [facility] Last Admin: 11/24/17 19:58 Dose: 0.63 mg Metoclopramide HCl (Reglan) 5 mg IVP Q6 [facility] Last Admin: 11/25/17 00:00 Dose: 5 mg Ondansetron HCl (Zofran Inj) 4 mg IVP Q4H PRN PRN Reason: Nausea/Vomiting Pantoprazole Sodium (Protonix Inj) 40 mg IVP Q12 [facility] Last Admin: 11/24/17 23:30 Dose: 40 mg - Labs Labs: 11/25/17 00:40 11/25/17 00:40 PT 20.9 SECONDS (9.4-12.5) H 11/25/17 00:40 INR 1.81 11/25/17 00:40 APTT 37.7 Seconds (25.1-36.5) H 11/24/17 21:17 <Torie Ku - Last Filed: 11/28/17 02:20> Objective - Vital Signs/Intake and Output Vital Signs (last 24 hours): Temp Pulse Resp BP Pulse Ox 98.2 F 30 L 19 81/65 L 77 L 11/25/17 02:49 11/25/17 02:47 11/25/17 03:00 11/25/17 02:20 11/25/17 02:41 - Labs Labs: 11/25/17 00:40 11/25/17 00:40 PT 20.9 SECONDS (9.4-12.5) H 11/25/17 00:40 INR 1.81 11/25/17 00:40 APTT 37.7 Seconds (25.1-36.5) H 11/24/17 21:17 Attending/Attestation - Attestation I have personally seen and examined this patient.: Yes I have fully participated in the care of the patient.: Yes I have reviewed all pertinent clinical information, including history, physical exam and plan: Yes
--- NOTE | 2017-11-25 06:48 | PCM.PROC ---
<JeniCherie - Last Filed: 11/25/17 06:46> Procedures Attestation:: I certify that I have explained the specified Operation(s) or Procedure(s), risks, benefits and reasonable alternatives to the Patient and/or other person responsible. The opportunity was given to ask questions and all questions answered - Central Line Placement Right Internal Jugular Triple Lumen Catheter Aseptic technique was employed throughout the procedure: Hand Hygiene done prior to procedure, Full sterile barriers (mask, hair cover, sterile gown, sterile gloves), Full body sterile drape, Chloraprep Antiseptic: 30 second prep for IJ or SC sites CVP Time Out Performed: Yes Pt. Placed on Pulse Ox Monitor: Yes Central Line Prep: Chlorhexidine-Alcohol Combination Ultrasound Used for Placement: Yes Central Line Lumen Inserted: triple Central Line Length: 16 cm Post Procedure: Sutured in Place, Good Blood Return, All Ports Aspirated, Flushed, Capped, Sterile Dressing Applied Secured by: Suture Post procedure dressing: Gauze, Clear vapor permeable, Chlorhexidine disc (Biopatch) Post Procedure X-Ray: Yes Patient Tolerated Procedure: No Complications Immediate Complications: None <Torie Ku - Last Filed: 11/25/17 06:52> Attending/Attestation - Attestation I have personally seen and examined this patient.: Yes I have fully participated in the care of the patient.: Yes I have reviewed all pertinent clinical information, including history, physical exam and plan: Yes
--- NOTE | 2017-11-25 08:43 | RAD ---
Date of service: 11/24/2017 HISTORY: Code Alexey COMPARISON: 11/23/2017 FINDINGS: Endotracheal tube terminates 4 cm proximal to the musa. LUNGS: There is moderate pulmonary venous congestion. No focal consolidation. PLEURA: No significant pleural effusion identified, no pneumothorax apparent. CARDIOVASCULAR: There is moderate cardiomegaly. OSSEOUS STRUCTURES: No significant abnormalities. VISUALIZED UPPER ABDOMEN: Normal. OTHER FINDINGS: None. IMPRESSION: Moderate cardiomegaly and pulmonary congestion. Endotracheal tube terminates 4 cm proximal to the musa.
--- NOTE | 2017-11-25 08:45 | RAD ---
Date of service: 11/24/2017 HISTORY: central line COMPARISON: 11/24/2017 at 9:04 p.m. FINDINGS: The right IJV line terminates in the SVC. The nasogastric tube terminates in the stomach. The endotracheal tube is low in position and terminates at the musa. LUNGS: There is interval development of pulmonary edema and worsening pulmonary venous congestion. PLEURA: Suspect small pleural effusions, no pneumothorax apparent. CARDIOVASCULAR: Persistent cardiomegaly and prominent central vasculature. OSSEOUS STRUCTURES: No significant abnormalities. VISUALIZED UPPER ABDOMEN: Normal. OTHER FINDINGS: None. IMPRESSION: The right IJV line terminates in the SV Worsening pulmonary venous congestion and interval development of pulmonary edema.
--- NOTE | 2017-11-25 13:02 | US ---
Date of service: 11/25/2017 HISTORY: evaluate for bleed. Retroperitoneal US COMPARISON: None. TECHNIQUE: Grayscale imaging was performed. FINDINGS: LIVER: Measures 20.9 cm. There is diffuse increased echogenicity of the liver parenchyma. No mass. No intrahepatic bile duct dilatation. GALLBLADDER: There are no gallstones, wall thickening or pericholecystic fluid. The sonographic Kong's sign is negative. COMMON BILE DUCT: Measures 5.5 mm. No stones. No dilatation. PANCREAS: Unremarkable as visualized. No mass. No ductal dilatation. RIGHT KIDNEY: Measures 10.1cm. Normal echogenicity. No calculus, mass, or hydronephrosis. LEFT KIDNEY: Not visualized. SPLEEN: Normal in size and contour. No mass. AORTA: No aneurysmal dilatation. IVC: Unremarkable. OTHER FINDINGS: None. IMPRESSION: Mild hepatomegaly. Diffuse increased echogenicity in the liver may reflect hepatic steatosis however parenchymal infectious/ inflammatory etiologies cannot be entirely excluded. Clinical and laboratory correlation is advised. Please note this examination is technically limited due to patient body habitus. The retroperitoneum is not well visualized. The left kidney was also not well visualized. Evaluation of retroperitoneal hemorrhage is there is very limited. There is a persistent clinical concern, CT scan of the abdomen and pelvis without intravenous contrast is recommended.
--- NOTE | 2017-12-02 22:37 | OP ---
PROCEDURE DATE: 11/23/2017 SURGEON: Miguel Ángel Bennett MD. OFFSET PRINTER: Matt Montanez DO, PGY-2. ANESTHESIA ADMINISTERED BY: Everette Wise DO. TYPE OF ANESTHESIA: General endotracheal - Exparel - 20 mL. PREOPERATIVE DIAGNOSES: 1. Recurrent ventral hernia. 2. Morbid obesity. 3. Hypertensive coronary artery disease. POSTOPERATIVE DIAGNOSES: 1. Recurrent ventral hernia. 2. Morbid obesity. 3. Hypertensive coronary artery disease. 4. Extensive intestinal adhesions. PROCEDURE: On 11/23/2017: 1. Laparotomy with ventral herniorrhaphy - mesh. 2. Lysis of adhesions. 3. Incisional block with Exparel. OPERATIVE INDICATIONS: The patient is a 57-year-old male who has had a progressively enlarging ventral hernia at the site of his umbilicus, having been repaired 16 years earlier. His history includes an umbilical hernia repair done 2 years prior to the first hernia and the patient ruptured the midline above the umbilicus and required a ventral hernia patch placement. In the subsequent 16 years, he has gained approximately 50 more pounds. He is over 350 pounds at this time and the lower end of the mesh apparently is not covering the umbilicus adequately and the patient has developed an incarcerated ventral hernia at the level of the umbilicus. He had been advised at the request of his private physician, Dr. Nael Sharpe, that he undergo another hernia repair with mesh and in preparation for this, he underwent a nuclear medicine stress testing and an echocardiogram for cardiac clearance. He did exceptionally well on both without evidence of ischemia and has a 50% ejection fraction and was cleared by Dr. Sharpe. His environmental monitoring specialist is Dr. Kyle Herzog who he is in agreement with this procedure. Risks, benefits, and alternatives with their anticipated outcomes were discussed with the patient and with his sister present and both in agreement, signed the consent at this point. DESCRIPTION OF PROCEDURE: The patient is brought to the operating room, identified by his wrist band, undergoes time-out procedure and is then placed on the operating table in a supine manner. Following the induction of general anesthesia and the insertion of an endotracheal tube, the abdomen is electrically clipped, prepped with Hibiclens and chlorhexidine preparation and he is aseptically draped. Sequential compression devices have been placed on his lower extremity for venous thromboembolism prophylaxis. Transverse incision is made at the lower level of the umbilicus and dissection carried on through the subcutaneous tissues down to the fascia below. The hernia sac is able to be dissected off the umbilicus and is opened and the incarcerated omentum - bowel is reduced into the peritoneal cavity and the hernia sac is dissected with the cautery scalpel and electrocoagulating current at the level of the anterior fascia. Hernia sac is now submitted to pathology in formalin and the incision extended laterally on both left and right sides to expose the intra-abdominal content and allow access for adhesions of bowel to the anterior abdominal wall. In dissecting the adhesions, it is apparent that the previous mesh placed 16 years earlier ended just at the level of the umbilicus and the patient's increasing body girth and increased abdominal pressure created a new recurrent hernia just below this mesh. Once the adhesions were completely freed, a composite mesh was placed into the abdominal cavity and secured to the anterior abdominal wall with Staytak trini. The intestinal adhesions were completely confirmed as clean and intact and removed without any injury to the bowel. A Rich drain is placed on top of the mesh and brought out through a trocar technique stab would and secured with 2-0 Surgidac polyester suture. The anterior fascia is now closed with interrupted buried [id number] #1 Prolene sutures and the subcutaneous tissue is now lavaged with saline, aspirated and hemostasis contained. Interrupted subcutaneous 3-0 Polysorb sutures are employed and a 10-Trinidadian red rubber catheter is inserted into the incision and the skin closed with the AutoSuture skin stapler. A dry dressing is now applied. The patient is awakened, extubated and transported to the recovery room in a satisfactory condition. Sponge, instrument, and suture count were verified as correct at the end of the procedure. Estimated blood loss during this procedure was less than 25 mL of blood. Miguel Ángel Bennett MD
== END 2017-11-25 02:42 | DRG 354 ==
LOC: SDS 08:14 → 3RSO 15:59 → CCU 11-24 22:10
PROVIDERS: ADMIT Surgery; ATTEND Surgery
PROC: 0WUF0JZ Supplement Abdominal Wall with Synthetic Substitute, Open Approach (ICD-10-PCS; principal; 2017-11-23 10:30)
PROC: 05HM33Z Insertion of Infusion Device into Right Internal Jugular Vein, Percutaneous Approach (ICD-10-PCS; 2017-11-25)
PROC: B543ZZA Ultrasonography of Right Jugular Veins, Guidance (ICD-10-PCS; 2017-11-25)
PROC: 5A12012 Performance of Cardiac Output, Single, Manual (ICD-10-PCS; 2017-11-25)
PROC: 0BH17EZ Insertion of Endotracheal Airway into Trachea, Via Natural or Artificial Opening (ICD-10-PCS; 2017-11-25)
PROC: 5A12012 Performance of Cardiac Output, Single, Manual (ICD-10-PCS; 2017-11-25)
PROC: 5A12012 Performance of Cardiac Output, Single, Manual (ICD-10-PCS; 2017-11-25)
DX: K43.0 Incisional hernia with obstruction, without gangrene (principal); E66.2 Morbid (severe) obesity with alveolar hypoventilation; E87.2 Acidosis; K66.0 Peritoneal adhesions (postprocedural) (postinfection); I50.32 Chronic diastolic (congestive) heart failure; Z68.42 Body mass index [BMI] 45.0-49.9, adult; I87.8 Other specified disorders of veins; D64.9 Anemia, unspecified; D72.829 Elevated white blood cell count, unspecified; E11.9 Type 2 diabetes mellitus without complications; E78.5 Hyperlipidemia, unspecified; I11.0 Hypertensive heart disease with heart failure; K76.0 Fatty (change of) liver, not elsewhere classified; R09.02 Hypoxemia; Z79.84 Long term (current) use of oral hypoglycemic drugs; Z82.49 Family history of ischemic heart disease and other diseases of the circulatory system; Z83.3 Family history of diabetes mellitus; Z91.11 Patient's noncompliance with dietary regimen; Z98.49 Cataract extraction status, unspecified eye; M10.9 Gout, unspecified; I08.2 Rheumatic disorders of both aortic and tricuspid valves; I89.0 Lymphedema, not elsewhere classified; R00.0 Tachycardia, unspecified; I46.9 Cardiac arrest, cause unspecified; I25.10 Atherosclerotic heart disease of native coronary artery without angina pectoris